=== PATIENT | female | born 1985 | race Caucasian/White ===

== ENCOUNTER → 2016-10-04 | Outpatient (CLI) | payer BC ==
[~2016-10-04] MED LIST: ALBU1AER9 INH; AZEL15GE TOP; BUPRTAB PO; BUSP30TA2 PO; CHOL100010 PO; DPPI150 INJ; EFF75 PO; INSPMPHMLG; LEVO125T4 PO; [UNRECOGNIZED DRUG - CODE] PO
== END | disposition home or self-care (01) ==
LOC: C.LAB1850 09:48
PROVIDERS: ATTEND Podiatrist Foot & Ankle Surgery
DX: Z79.899 Other long term (current) drug therapy (principal)

== ENCOUNTER → 2016-10-04 | Outpatient (CLI) | payer BC | END | disposition home or self-care (01) | LOC: C.LABSPEC 16:52 | PROVIDERS: ATTEND Podiatrist Foot & Ankle Surgery | DX: B35.1 Tinea unguium (principal) ==

== ENCOUNTER → 2016-11-01 | Outpatient (CLI) | payer BC ==
[~2016-11-01] MED LIST changes: -DPPI150 INJ
== END | disposition home or self-care (01) ==
LOC: C.LABSPEC 17:09
PROVIDERS: ATTEND Obstetrics & Gynecology
DX: N76.0 Acute vaginitis (principal)

== ENCOUNTER → 2016-11-05 | Day surgery (SDC) | payer BC ==
[2016-10-18 12:47] VITALS: Ht 170.2 cm; Wt 91.8 kg
[~2016-11-05] VITALS: Ht 170.2 cm; Wt 91.8 kg
[~2016-11-05] MED LIST changes: +ATROPINE SULFATE 0.1 MG/ML 5ML SYR IV PRN; +BUPIVACAINE 0.5 % 5 MG/1 ML MPF 30ML VIAL ONE; +CEFAZOLIN 2000 MG/60 ML D5W IV SCH; +EpHEDrine SULFATE INJ 50 MG/ML AMP IV PRN; +FENTANYL CITRATE INJ 50 MCG/1 ML 2 ML VIAL ONE; +LACTATED RINGER'S 1000ML 1,000 ML IV SCH; +LIDOCAINE HCL 2% LOCAL 20 ML VIAL ONE; +MIDAZOLAM HCL 1 MG/ML 2ML VIAL ONE; +ONDANSETRON INJ 2 MG/ML 2 ML VIAL IV PRN; +SODIUM CHLORIDE 0.9% 1000ML 1,000 ML IV SCH
--- NOTE | 2016-11-05 06:44 | History & Physical Bridge Note ---
H&P Re-Evaluation Bridge Note: I have examined the patient, reviewed the History & Physical and in the interval since the performance of the History & Physical I have noted the following changes of clinical significance: No changes noted
--- NOTE | 2016-11-05 06:46 | Discharge Instructions ---
Discharge Instructions Date of Service Nov 05, 2016. Visit Reason for Visit: Left Dana's Tenosynovitis Discharge Discharge Diagnosis / Problem: same Discharge Goals Goal(s): Decrease discomfort, Improve function Medications Stopped Medications Name(s): na Restart Stopped Medication(s): resume all meds Activity Recommendations Activity Limitations: as noted below Lifting Limitations: none Exercise/Sports Limitations: until after follow-up appointment May Resume Sexual Activity: when tolerated Shower/Bathe: keep incision dry Driving or Machine Use: no limitations Anesthesia . Post Anesthesia Instructions: If you have had General Anesthesia or IV Sedation: * Do not drive today. * Resume driving when surgeon permits. * Do not make important decisions or sign legal documents today. * Call surgeon for: 1. Temperature elevations greater than 101 degrees F. 2. Uncontrollable pain. 3. Excessive bleeding. 4. Persistent nausea and vomiting. 5. Medication intolerance (nausea, vomiting or rash). * For nausea and vomiting use only clear liquids such as: tea, soda, bouillon until nausea subsides, then gradually increase diet as tolerated. * If you have any concerns or questions, call your surgeon's office. If physician is unavailable and it is an emergency, call 911 or go to the nearest emergency room. . Instructions / Follow-Up Instructions / Follow-Up The following are instructions to follow after minor hand surgery. ACTIVITY RECOMMENDATIONS: * Minimize activity until your first visit after surgery. * No excessive walking, jogging, sports or laboring. * Return to activity is individualized. Most patients are able to return to everyday activities within 2 weeks. * Return to sports or intensive labor usually occurs at 1-2 months. * DRIVING: Driving may be resumed when you feel you have adequate pain control and use of the hand. * BATHING: You may shower or sponge-bathe immediately after surgery. The dressing will need to be covered with a plastic bag or plastic wrap until the dressing is changed on the fourth or fifth day after surgery. Once the dressing has been changed on the fourth or fifth day after surgery, you may shower and get the incision wet. * Wash with regular soap and water. * Do not bathe (submerge the incision), soak, swim or use a hot tub until the incision is completely healed over with normal skin and the doctor has given the OK to proceed. * There is no need to apply any ointments, powders or salves to your incision. * Do not apply alcohol or hydrogen peroxide directly to the incision. Diluted peroxide (50:50 mixture with sterile saline) may be used to clean dried blood from around the incision area. WORK/SCHOOL: * You may return to sedentary work or school when you are feeling comfortable. This is usually 3-7 days after surgery. * Expect increased discomfort with increased activity. Continue to elevate and ice the hand as much as possible. DIET: * Resume previous diet. MEDICATIONS: * You will have a prescription for pain medication and an anti-inflammatory medication after surgery. Use the pain pills for severe pain and the anti-inflammatory for less severe pain. * Once the pain pills have run out, try to use the anti-inflammatory. If this is not effective then contact the office for assistance. * The pain medication may cause nausea, constipation and sleepiness. You should see how they affect you before driving or similar activity. * The anti-inflammatory may cause stomach upset and bleeding. If this occurs, let your doctor know immediately . * Some patients may need blood clot prevention. This can be done with either a pill or a simple shot. Your doctor will advise you on when to begin these medications and how to take them. * Do not take aspirin or other anti-inflammatory products (i.e. Advil or Aleve ) if taking blood thinner medication. * Take a stool softener like Colace or a stimulant like Senokot to prevent constipation. SPECIAL CARE INSTRUCTIONS: ICE: * Do not apply ice directly to the skin. * Use a thin dressing or stockinet between the skin and ice bag. The dressing in place after surgery will suffice. * Apply ice for 20-30 minutes and repeat every 2-4 hours. This is especially important for the first 3-7 days after surgery. * Once the pain improves, use ice as needed. ELEVATION: * Keep your hand elevated at or above the level of your heart as much as possible. * Expect some increased discomfort and swelling if you allow your hand to hang down for any length of time. DRESSING: * Your dressing will be changed 4-5 days after surgery by the physical therapist or physician's temporary office assistant. Leave your dressing intact until this time. * You may then change your dressing daily with clean dry gauze or Band-aids and a soft wrap or stockinet. * Always wash your hands prior to touching the incision area. * Once the stitches are removed, you may leave the wound open to air or cover with a thin bandage. * There is no need to apply any ointments, powders or salves to your incision. * Expect some bloody drainage for the first few days after surgery. * Leave the tape strips in place (if present) for 5-7 days. * The initial dressing after surgery may become soaked with blood or fluid which is normal. You may reinforce your dressing with clean, dry gauze as needed. BRACE: * Bracing is generally not needed after routine hand surgery. THERAPY: * Physical therapy may be prescribed after your surgery. * For carpal tunnel and trigger digit surgery you may begin moving your fingers and wrist immediately after surgery as tolerated. * Be careful to not overuse. * Once the sutures are removed, further range of motion exercises can be performed. * Hand incisions may be very sensitive for a few months after surgery so avoid excessive pressure on the incision. If necessary, use a padded weightlifters' glove. * You may massage the incision with skin cream to make it less sensitive and reduce scarring. * Hand strength usually returns with normal use. * If needed, squeezing a soft sponge or Play-dough may help. * Your doctor will recommend physical therapy if necessary. PROBLEMS/QUESTIONS: * If you have any problems such as severe pain, numbness, tingling or high fevers or if you have any questions, please contact the office at [phone]. * It is not uncommon to have some numbness and tingling after the surgery especially if you have had a nerve block done. This should gradually improve over the first 1- 2 days. If this persists longer or worsens then contact the office. FOLLOW UP VISIT: * If not already scheduled, please call the office at to schedule follow-up appointments for approximately 10 days, 6 weeks and 3 months after surgery. Diet Recommendations Recommended Home Diet: resume previous diet Procedures Procedures Performed: 1st dorsal compartmrnt release Pending Studies Studies pending at discharge: no Medical Emergencies . Who to Call and When: Medical Emergencies: If at any time you feel your situation is an emergency, please call 911 immediately. . Non-Emergent Contact Non-Emergency issues call your: Specialist Call Non-Emergent contact if: temperature is above 101.5 . . "Provider Documentation" section prepared by Han Overton.
--- NOTE | 2016-11-05 07:29 | [facility] Post Operative Brief Note ---
Immediate Operative Summary Operative Date Nov 05, 2016. Pre-Operative Diagnosis Left Wrist Dequervain's Tenosynovitis Post-Operative Diagnosis Same Procedure(s) Performed Left Wrist Open First Dorsal Compartment Release Surgeon Dr. Overton Wallpaper Scraper Surgeon(s) Concetta Lewis PA-C Estimated Blood Loss Trace Findings severe constriction/fraying Fluids (cc crystalloids) see anesthesia report Specimens None Drains none Anesthesia local/sedation Complication(s) None Disposition Recovery Room / PACU
[2016-11-05 07:51] VITALS: TEMP 36.8
--- NOTE | 2016-11-05 08:04 | Anesthesia Progress Nt - [facility] ---
Anesthesia Post Op Note Date & Time Nov 05, 2016 at 08:04 Vital Signs Pain Intensity: 0 Vital Signs Past 12 Hours Date Time Temp Pulse Resp B/P Pulse Ox O2 Delivery O2 Flow Rate FiO2 11/05/16 07:51 36.8 82 16 122/77 97 Room Air 11/05/16 06:25 37.4 95 16 140/91 99 Room Air Notes Mental Status: alert / awake / arousable, participated in evaluation Pt Amnestic to Procedure: Yes Nausea / Vomiting: adequately controlled Pain: adequately controlled Airway Patency, RR, SpO2: stable & adequate BP & HR: stable & adequate Hydration State: stable & adequate Anesthetic Complications: no major complications apparent
[2016-11-05 08:05] VITALS: BP 125/78; PULSE 77; O2SAT 98
--- NOTE | 2016-11-05 08:07 | OPERATIVE REPORT ---
DATE OF OPERATION: 11/05/2016 SURGEON: Han Overton MD INSTRUMENT REPAIR SPECIALIST: Manav Lewis PA-C. No resident or fellow available. PREOPERATIVE DIAGNOSIS: Left de Quervain's syndrome/first dorsal compartment entrapment. POSTOPERATIVE DIAGNOSIS: Same. OPERATION PERFORMED: De Quervain's first dorsal compartment release, left wrist. PERIOPERATIVE SITUATION: Medically cleared female, with intractable de Quervain's syndrome. Physical exam x-ray consistent with this. She wants to proceed with surgical treatment. She is a diabetic. OPERATION: The patient was appropriately identified, site verified, consent verified, 2 grams of Ancef confirmed as being given. The left upper extremity was examined revealing the area of tenderness. It was then marked and incision area then infiltrated with 4 mL of 0.5% plain Marcaine and 4 mL of 2% plain lidocaine. The arm was then prepped and draped in usual routine fashion. Tourniquet was applied. The arm was then exsanguinated. Tourniquet was inflated to 250 mmHg after exsanguination of limb with a rubber Esmarch bandage for a total of about 15 minutes. A linear incision vertically was then made over the area. Full thickness flaps raised and care taken to protect the sensory branches of the nerve, the radial nerve. The area was then identified. There was significant bulging visible. The tendon sheath was then incised on the dorsal third of the sheet.There was an open up of immediate fluid release from the tendon sheath. There was a lot of tenosynovitis, this was all debrided. There was some fraying to the abductor pollicis longus. There were multiple heads to the extensor pollicis brevis. These were all released. The wound was then copiously irrigated and then closed using 3-0 Vicryl subcutaneous stitch and a running subcuticular 3-0 nylon stitch. Appropriate dressing was applied and a 3-inch fiberglass thumb spica splint. The patient was then transferred to the holding area in satisfactory condition having tolerated the procedure well. Estimated blood loss was trace. Crystalloid per anesthesia report. No DVT prophylaxis required. Follow up in two weeks for suture removal. I attest to the content of the Intraoperative Record and any orders documented therein. Any exceptions are noted below. CHRISTID
--- NOTE | 2016-11-05 09:11 | OPERATIVE REPORT ---
DATE OF OPERATION: 11/05/2016 PREOPERATIVE DIAGNOSIS: Left wrist de Quervain's syndrome/first dorsal compartment entrapment. POSTOPERATIVE DIAGNOSIS: Left wrist same. PROCEDURE: Left wrist de Quervain's first dorsal compartment release. SURGEON: Dr. Overton. CAR KNOCKER: Manav Lewis PA-C. HISTORY OF PRESENT ILLNESS: This 31-year-old white female presented to the office with complaints of intractable wrist pain at the first dorsal compartment. She had tried conservative care measures without success. She has symptoms in both wrists but the left is worse. She elected to proceed with surgical intervention after being educated about potential risks and outcomes. OPERATION: The patient was taken to the operating room where she was given local anesthetic and sedation. She was prepped and draped in the usual sterile fashion. Please see Dr. Overton's operative report for specifics of the procedure. I was present for the entire case from initial patient positioning through final wound closure. Assistance was provided in tissue retraction, hemostasis, and final wound closure. The patient was taken to phase 2 recovery in satisfactory condition. I attest to the content of the Intraoperative Record and any orders documented therein. Any exceptions are noted below. MTDD
== END | disposition home or self-care (01) ==
LOC: X.SURG 06:14
PROVIDERS: ATTEND Physical Medicine & Rehabilitation Sports Medicine
DX: M65.4 Radial styloid tenosynovitis [de Quervain] (principal); I10 Essential (primary) hypertension; E11.9 Type 2 diabetes mellitus without complications; F41.9 Anxiety disorder, unspecified; E66.9 Obesity, unspecified; Z98.51 Tubal ligation status; Z98.890 Other specified postprocedural states; J45.909 Unspecified asthma, uncomplicated; Z68.31 Body mass index [BMI] 31.0-31.9, adult; Z79.4 Long term (current) use of insulin

== ENCOUNTER → 2017-04-30 | Outpatient (CLI) | payer BC ==
[~2017-04-30] MED LIST changes: -ATROPINE SULFATE 0.1 MG/ML 5ML SYR IV PRN; -BUPIVACAINE 0.5 % 5 MG/1 ML MPF 30ML VIAL ONE; -CEFAZOLIN 2000 MG/60 ML D5W IV SCH; -EpHEDrine SULFATE INJ 50 MG/ML AMP IV PRN; -FENTANYL CITRATE INJ 50 MCG/1 ML 2 ML VIAL ONE; -LACTATED RINGER'S 1000ML 1,000 ML IV SCH; -LIDOCAINE HCL 2% LOCAL 20 ML VIAL ONE; -MIDAZOLAM HCL 1 MG/ML 2ML VIAL ONE; -ONDANSETRON INJ 2 MG/ML 2 ML VIAL IV PRN; -SODIUM CHLORIDE 0.9% 1000ML 1,000 ML IV SCH
== END | disposition home or self-care (01) ==
LOC: C.PAPS 10:01
PROVIDERS: ATTEND Obstetrics & Gynecology
DX: Z01.419 Encounter for gynecological examination (general) (routine) without abnormal findings (principal)

== ENCOUNTER → 2017-08-06 | Outpatient (CLI) | payer BC ==
[~2017-08-06] MED LIST changes: -LEVO125T4 PO; +LEVO125T5 PO
== END | disposition home or self-care (01) ==
LOC: C.LABSPEC 17:11
PROVIDERS: ATTEND Dermatology
DX: B35.1 Tinea unguium (principal)

== ENCOUNTER → 2017-12-12 | Outpatient (CLI) | payer OTHER ==
[~2017-12-12] MED LIST changes: +OPTIRAY 320 IV PRN
--- NOTE | 2017-12-12 15:24 | DIAGNOSTIC IMAGING REPORT ---
ABD/PELVIS IV AND ORAL CONT CT DOSE: 655.64 mGycm HISTORY: Pain R10.32 LLQ painR19.8 [id number] TECHNIQUE: Multiaxial CT images of the abdomen and pelvis were performed following the use of intravenous and oral contrast. A dose lowering technique was utilized adhering to the principles of ALARA. COMPARISON STUDY: None. FINDINGS: Lung bases are clear. Liver is uniform throughout. No significant gallbladder distention. The kidneys enhance uniformly. Moderate thickening of the gastric fundus felt to be technical. No significant adenopathy of the abdomen or pelvis. Nonobstructive bowel pattern. Uterus is anteflexed. Bladder is midline. No free fluid within the pelvic cul-de-sac. IMPRESSION: No acute process of the abdomen or pelvis. The above report was generated using voice recognition software. It may contain grammatical, syntax or spelling errors. Electronically signed by: Gunner Tomas M.D. 12/12/2017 3:22 PM Dictated Date/Time: 12/12/2017 3:19 PM
== END | disposition home or self-care (01) ==
LOC: C.CTS 12:58
PROVIDERS: ATTEND Internal Medicine
DX: R19.8 Other specified symptoms and signs involving the digestive system and abdomen (principal); R10.32 Left lower quadrant pain

== ENCOUNTER → 2017-12-24 | Outpatient (CLI) | payer OTHER ==
[~2017-12-24] MED LIST changes: -OPTIRAY 320 IV PRN
--- NOTE | 2017-12-24 13:02 | DIAGNOSTIC IMAGING REPORT ---
NUCLEAR GASTRIC EMPTYING STUDY HISTORY: Left lower quadrant abdominal pain. borborygmi COMPARISON: Abdomen and pelvis CT 12/12/2017. TECHNIQUE: Following the oral administration of 1.0 mCi of technetium 99m sulfur colloid in egg sandwich and 8 ounces of water, static abdominal images are obtained anteriorly and posteriorly at 0 minutes, 1 hour, 2 hour, and 4 hour time intervals. Gastric emptying was calculated utilizing the geometric mean method. FINDINGS: There is approximately 65% activity remaining at the 1 hour time interval (normal is less than 90%), 38% remaining at the 2 hour time interval (normal is less than 60%), and 5% activity remaining at the 4 hour time interval (normal is less than 10%). IMPRESSION: No evidence for delayed gastric emptying. Electronically signed by: Oc Stafford M.D. 12/24/2017 1:01 PM Dictated Date/Time: 12/24/2017 12:59 PM
== END | disposition home or self-care (01) ==
LOC: C.NUCL 08:18
PROVIDERS: ATTEND Physician Assistant
DX: R19.8 Other specified symptoms and signs involving the digestive system and abdomen (principal); R10.32 Left lower quadrant pain

== ENCOUNTER 2018-04-09 13:49 | Inpatient (IN) | payer OTHER ==
[~2018-04-09] VITALS: Ht 172.7 cm; Wt 87.7 kg
[2018-04-09] MEDS ORDERED: SODIUM CHLORIDE 0.9% 1000ML 1,000 ML IV STA (15:08)
[2018-04-09] MEDS ORDERED: ONDANSETRON INJ 2 MG/ML 2 ML VIAL IV STA (15:08)
--- NOTE | 2018-04-09 15:41 | DIAGNOSTIC IMAGING REPORT ---
CHEST ONE VIEW PORTABLE CLINICAL HISTORY: 33 years-old Female presenting with vomiting, dka. TECHNIQUE: Portable upright AP view of the chest was obtained. COMPARISON: 09/19/2011. FINDINGS: Cardiomediastinal silhouette normal. No focal opacity. No large effusion or pneumothorax. Osseous structures normal. Upper abdomen normal. IMPRESSION: 1. No acute cardiopulmonary disease. Electronically signed by: Aubrey Bedoya M.D. 04/09/2018 3:40 PM Dictated Date/Time: 04/09/2018 3:38 PM
[2018-04-09] MEDS ORDERED: VNTHFA/IN INH (15:43)
[2018-04-09] MEDS ORDERED: CHOL1000 PO (15:43)
--- NOTE | 2018-04-09 15:43 | EMERGENCY ROOM VISIT NOTE ---
History First contact with patient: 15:00 Chief Complaint: VOMITING Stated Complaint: THROWING UP, DIABETIC Nursing Triage Summary: Vomiting since 299. History of Present Illness The patient is a 33 year old female who presents to the Emergency Room with complaints of vomiting which began approximately 12 hours ago. The patient reports that she woke up this morning vomiting. She has been unable to keep anything down since then. She is a type I diabetic and reports that her sugar has been high, with her most recent blood sugar being 466. She was seen at acute care and given 2 Zofran which she immediately vomited. She states that she has not been ill recently. Her mother is also ill with vomiting. She reports a history of DKA over 10 years ago, but nothing recently. She has an insulin pump and did bolus recently. She states that her blood sugars are typically moderately controlled. She denies any abdominal pain, fevers or diarrhea. Review of Systems A complete 10 point review of systems was reviewed with the patient with pertinent positives and negatives as per history of present illness. All else were negative. Past Medical/Surgical History Medical Problems: (1) DKA (diabetic ketoacidoses) (2) Hypertension (3) Type 1 diabetes mellitus Social History Smoking Status: Never Smoker Marital Status: Housing Status: lives with significant other Current/Historical Medications Scheduled Albuterol Hfa (Ventolin Hfa), 2 PUFFS INH Q4H Bupropion Hcl (Wellbutrin Xl), 1 TAB PO QAM Buspirone Hcl (Buspirone Hcl), 1 TAB PO BID Cholecalciferol (Vitamin D3), 1 TAB PO DAILY Insulin Human Lispro (Insulin Humalog Pump ), 1 EA N/A UD Irbesartan (Avapro), 75 MG PO QAM Levothyroxine Sodium (Levothyroxine Sodium), 125 MCG PO QAM Venlafaxine Hcl (Effexor), 225 MG PO HS Physical Exam Vital Signs Date Time Temp Pulse Resp B/P (MAP) Pulse Ox O2 Delivery O2 Flow Rate FiO2 04/09/18 21:25 106 18 134/55 100 Room Air 04/09/18 19:05 104 147/63 99 Room Air 04/09/18 17:25 100 130/94 100 Room Air 04/09/18 15:50 101 143/67 100 Room Air 04/09/18 13:55 36.4 102 20 128/72 100 Room Air Physical Exam VITALS: Vitals are noted on the nurse's note and reviewed by myself. Vital signs stable. GENERAL: This is a 33-year-old female, in no acute distress, well-developed well -nourished. SKIN: The skin was without rashes. EARS: External auditory canals clear, tympanic membranes pearly landeros without erythema or effusion bilaterally. EYES: Pupils equal round and reactive to light and accommodation. MOUTH: Mucous membranes moist. HEART: Regular rate and rhythm without murmurs gallops or rubs. LUNGS: Clear to auscultation bilaterally without wheezes, rales or rhonchi. ABDOMEN: Positive bowel sounds x 4. Soft, nontender to palpation. NEURO: Patient was alert and oriented to person place and time. Medical Decision & Procedures ER Provider Diagnostic Interpretation: CHEST ONE VIEW PORTABLE CLINICAL HISTORY: 33 years-old Female presenting with vomiting, dka. TECHNIQUE: Portable upright AP view of the chest was obtained. COMPARISON: 09/19/2011. FINDINGS: Cardiomediastinal silhouette normal. No focal opacity. No large effusion or pneumothorax. Osseous structures normal. Upper abdomen normal. IMPRESSION: 1. No acute cardiopulmonary disease. Laboratory Results 04/09/18 16:01 Red Blood Count 4.95, Mean Corpuscular Volume 85.9, Mean Corpuscular Hemoglobin 29.5, Mean Corpuscular Hemoglobin Concent 34.4, Mean Platelet Volume 10.9, Neutrophils (%) (Auto) 92.1, Lymphocytes (%) (Auto) 4.2, Monocytes (%) (Auto) 3.4, Eosinophils (%) (Auto) 0.0, Basophils (%) (Auto) 0.0, Neutrophils # (Auto) 21.65, Lymphocytes # (Auto) 0.99, Monocytes # (Auto) 0.80, Eosinophils # (Auto) 0.01, Basophils # (Auto) 0.01 04/09/18 20:59 Test 04/09/18 15:35 04/09/18 16:01 04/09/18 20:11 04/09/18 20:59 Urine Color YELLOW Urine Appearance CLEAR (CLEAR) Urine pH 5.0 (4.5-7.5) Urine Specific [place] 1.025 (1.000-1.030) Urine Protein NEG (NEG) Urine Glucose (UA) 3+ (NEG) Urine Ketones 4+ (NEG) Urine Occult Blood NEG (NEG) Urine Nitrite NEG (NEG) Urine Bilirubin NEG (NEG) Urine Urobilinogen NEG (NEG) Urine Leukocyte Esterase NEG (NEG) Urine Test NEG (NEG) White Blood Count 23.52 K/uL (4.8-10.8) Red Blood Count 4.95 M/uL (4.2-5.4) Hemoglobin 14.6 g/dL (12.0-16.0) Hematocrit 42.5 % (37-47) Mean Corpuscular Volume 85.9 fL (80-100) Mean Corpuscular Hemoglobin 29.5 pg (25-34) Mean Corpuscular Hemoglobin Concent 34.4 g/dl (32-36) Platelet Count 344 K/uL (130-400) Mean Platelet Volume 10.9 fL (7.4-10.4) Neutrophils (%) (Auto) 92.1 % Lymphocytes (%) (Auto) 4.2 % Monocytes (%) (Auto) 3.4 % Eosinophils (%) (Auto) 0.0 % Basophils (%) (Auto) 0.0 % Neutrophils # (Auto) 21.65 K/uL (1.4-6.5) Lymphocytes # (Auto) 0.99 K/uL (1.2-3.4) Monocytes # (Auto) 0.80 K/uL (0.11-0.59) Eosinophils # (Auto) 0.01 K/uL (0-0.5) Basophils # (Auto) 0.01 K/uL (0-0.2) RDW Standard Deviation 42.4 fL (36.4-46.3) RDW Coefficient of Variation 13.6 % (11.5-14.5) Immature Granulocyte % (Auto) 0.3 % Immature Granulocyte # (Auto) 0.06 K/uL (0.00-0.02) Venous Blood pH 7.25 (7.36-7.41) Venous Blood Partial Pressure CO2 35 mmHg (38.0-50.0) Venous Blood Partial Pressure O2 37 mmHg Venous Blood HCO3 15 mmol/L Venous Blood Oxygen Saturation 62.3 % Venous Blood Base Excess -11.0 mEq/L Total Bilirubin 1.1 mg/dl (0.2-1) Direct Bilirubin mg/dl (0-0.2) Aspartate Amino Transf (AST/SGOT) 24 U/L (15-37) Alanine Aminotransferase (ALT/SGPT) 21 U/L (12-78) Alkaline Phosphatase 102 U/L (45-117) Total Protein 8.4 gm/dl (6.4-8.2) Albumin 4.6 gm/dl (3.4-5.0) Bedside Hemoglobin 13.3 g/dl (12.0-16.0) Bedside Hematocrit 39 % (37-47) Bedside Blood Gas pH (LAB) 7.32 (7.35-7.45) Bedside Blood Gas pCO2 (LAB) 25 mmHg (35-46) Bedside Blood Gas pO2 (LAB) 96 mmHg (80-95) Bedside Blood Gas HCO3 (LAB) 13 meq/L (19-24) Bedside Blood Gas Total CO2 14 mEq/l (24-31) Bedside Blood Gas Base Excess (LAB) -13.0 meq/L (-9-1.8) Bedside Blood Gas O2 Saturation 97.0 % (90-95) Bedside Sodium 138 mEq/L (135-144) Bedside Potassium 4.2 mEq/L (3.3-5.0) Anion Gap 16.0 mmol/L (3-11) Est Creatinine Clear Calc Drug Dose 86.7 ml/min Estimated GFR () 79.0 Estimated GFR (Non- 68.2 BUN/Creatinine Ratio 22.4 (10-20) Calcium Level 9.0 mg/dl (8.5-10.1) Phosphorus Level 3.5 mg/dl (2.5-4.9) Magnesium Level 2.1 mg/dl (1.8-2.4) Beta-Hydroxybutyric Acid 43.41 mg/dL (0.2-2.81) Medications Administered Medications (Trade) Dose Ordered Sig/Fermin Route Start Time Stop Time Status Last Admin Dose Admin Sodium Chloride 1,000 ml @ 999 mls/hr Q1H1M STAT IV 04/09/18 15:08 04/09/18 16:08 DC 04/09/18 16:16 999 MLS/HR Ondansetron HCl (Zofran Inj) 4 mg NOW STAT IV 04/09/18 15:08 04/09/18 15:10 DC 04/09/18 16:15 4 MG Promethazine HCl 12.5 mg/Sodium Chloride 50.5 ml @ 204 mls/hr NOW STAT IV 04/09/18 16:51 04/09/18 17:05 DC 04/09/18 17:04 204 MLS/HR Potassium Chloride/Sodium Chloride 1,000 ml @ 500 mls/hr Q2H STAT IV 04/09/18 17:13 04/09/18 19:12 DC 04/09/18 17:13 500 MLS/HR Insulin Human Regular (NovoLIN R BOLUS FROM BAG) 2 unit ONE ONCE IV 04/09/18 17:45 04/09/18 17:46 DC 04/09/18 18:12 2 UNIT Insulin Human Regular 250 units/ Sodium Chloride 252.5 ml @ 0 mls/hr Q24H IV 04/09/18 17:45 04/10/18 17:44 04/09/18 18:12 2.2 MLS/HR Sodium Chloride 1,000 ml @ 150 mls/hr Q6H40M IV 04/09/18 21:20 05/09/18 21:19 04/09/18 23:36 150 MLS/HR Medical Decision Differential diagnosis includes DKA, gastroenteritis, cholecystitis, appendicitis, gastritis, electrolyte imbalance, infection, among others. The patient is a 33-year-old female with past medical history type 1 diabetes who presents today complaining of persistent vomiting. Labs revealed significant leukocytosis of 23.52. VBG and can panel suggestive of diabetic ketoacidosis. Patient has an anion gap 19, carbon dioxide 16. Potassium is 4.7. Patient has a mild elevation of creatinine at 1.22. Initial glucose was elevated at 512. Urinalysis showed 4+ ketones, consistent with significant dehydration. It is unclear what the source of the DKA is. Patient has had no recent infectious symptoms. She may have had a malfunction of her pump. The patient was given IV hydration. An insulin drip was started. Patient was closely monitored while in the emergency department. She was admitted to the [facility] service for further evaluation and care of DKA. Medication Reconcilliation Current Medication List: was personally reviewed by me Blood Pressure Screening Patient's blood pressure: Normal blood pressure Impression Primary Impression: DKA (diabetic ketoacidoses) Critical Care I have personally spent greater than 30 minutes of critical care time in the direct management of this patient. This includes bedside care, interpretation of diagnostic studies, and testing, discussion with consultants, patient, and family members, and other required patient management activities. This 30 minutes is in excess of all separately billable procedures. Departure Information Referrals Wilber Hinds M.D. (PCP) Patient Instructions My [facility] Problem Qualifiers Primary Impression: DKA (diabetic ketoacidoses) Diabetes mellitus type: type 1 Diabetes mellitus complication detail: without coma Qualified Codes: E10.10 - Type 1 diabetes mellitus with ketoacidosis without coma
[2018-04-09 16:18] LABS: HEMATOCRIT 42.5 % (37-47); HEMOGLOBIN 14.6 g/dL (12.0-16.0); MEAN CELL VOLUME 85.9 fL (80-100); MEAN CORPUSCULAR HEMOGLOBIN 29.5 pg (25-34); MEAN CORPUSCULAR HGB CONC 34.4 g/dl (32-36); MEAN PLATELET VOLUME 10.9 fL (7.4-10.4); PLATELET COUNT 344 K/uL (130-400); RED CELL DISTRIBUTION WIDTH CV 13.6 % (11.5-14.5); RED CELL DISTRIBUTION WIDTH SD 42.4 fL (36.4-46.3); WHITE BLOOD COUNT 23.52 K/uL (4.8-10.8)
[2018-04-09 16:50] LABS: BASO ABS # 0.01 K/uL (0-0.2); EOS ABS # 0.01 K/uL (0-0.5); IG# 0.06 K/uL (0.00-0.02); LYMPH % 4.2 %; LYMPH ABS # 0.99 K/uL (1.2-3.4); MONO % 3.4 %; NEUT % 92.1 %; NEUT ABS # 21.65 K/uL (1.4-6.5)
[2018-04-09] MEDS ORDERED: PROMETHAZINE HCL INJ 12.5 MG in SODIUM CHLORIDE 0.9% 50ML 50 ML IV STA (16:51)
[2018-04-09 16:53] LABS: ALBUMIN 4.6 gm/dl (3.4-5.0); CREATININE 1.22 mg/dl (0.60-1.20); POTASSIUM 4.7 mmol/L (3.5-5.1); TOTAL PROTEIN 8.4 gm/dl (6.4-8.2)
[2018-04-09] MEDS ORDERED: NSS + 20MEQ KCL 1000ML 1,000 ML IV STA (17:13)
[2018-04-09] MEDS ORDERED: INSULIN IV INFUSION PROTOCOL STA ×2 (17:13→21:20)
[2018-04-09] MEDS ORDERED: DKA GOAL RANGE 150-250 mg/dl 1 EA ONE ×2 (17:15→21:30)
[2018-04-09] MEDS ORDERED: MODERATE STRESS LEVEL ONE ×2 (17:15→21:30)
[2018-04-09] MEDS ORDERED: GLUCOSE 40% GEL 15 GM TUBE PO PRN ×2 (17:45→23:45)
[2018-04-09] MEDS ORDERED: GLUCOSE 10 TABS/TUBE PO PRN ×2 (17:45→23:45)
[2018-04-09] MEDS ORDERED: NovoLIN R BOLUS FROM BAG IV ONE (17:45)
[2018-04-09] MEDS ORDERED: CARBOHYDRATES FOR HYPOGLYCEMIA PO PRN ×2 (17:45→23:45)
[2018-04-09] MEDS ORDERED: DEXTROSE 50% 50 ML SYR IV PRN ×2 (17:45→23:45)
[2018-04-09] MEDS ORDERED: GLUCAGON FOR INJ 1 MG VIAL IM PRN ×2 (17:45→23:45)
[2018-04-09] MEDS: INSULIN REGULAR 250 UNITS in SODIUM CHLORIDE 0.9% 250ML 250 ML IV SCH (18:12)
[2018-04-09 20:26] LABS: ISTAT POTASSIUM 4.2 mEq/L (3.3-5.0); ISTAT SODIUM 138 mEq/L (135-144)
[2018-04-09] MEDS ORDERED: ONDANSETRON INJ 2 MG/ML 2 ML VIAL IV PRN (21:30)
[2018-04-09 21:39] LABS: CREATININE 1.07 mg/dl (0.60-1.20); POTASSIUM 4.9 mmol/L (3.5-5.1)
[2018-04-09 21:47] LABS: PHOSPHORUS 3.5 mg/dl (2.5-4.9)
--- NOTE | 2018-04-09 21:59 | History and Physical ---
History & Physical Date & Time of Service: Apr 09, 2018 at 21:34 Chief Complaint: Throwing Up, Diabetic Primary Care Physician: Wilber Hinds M.D. History of Present Illness Source: patient, hospital records The patient is a 33 year old female with a past medical history of Hypertension and Type 1 Diabetes on an insulin pump that woke up at 4am this morning with nausea and vomiting. The patient states that last night she had no acute complaints and woke up immediately this morning feeling unwell. She states that her insulin pump was functioning properly as of last night. She has has a previous episode of DKA 10 years ago but has had no issues since starting her insulin pump. She follows with Dr. [facility]es [facility]. She denies any fevers, chills, sweats, shortness of breath, chest pain, urinary symptoms, or any other acute complaints. Past Medical/Surgical History Medical Problems: (1) DKA (diabetic ketoacidoses) (2) Hypertension (3) Type 1 diabetes mellitus Family History Noncontributory Social History Smoking Status: Never Smoker Smokeless Tobacco Use: No Alcohol Use: none Drug Use: none Marital Status: Housing status: lives with significant other Occupational Status: employed Immunizations History of Influenza Vaccine: No History of Tetanus Vaccine?: No History of Pneumococcal: No History of Hepatitis B Vaccine: No Allergies Coded Allergies: Gabapentin (Unverified Adverse Reaction, Unknown, GI SYMPTOMS, 04/09/18) Home Medications Scheduled Albuterol Hfa (Ventolin Hfa), 2 PUFFS INH Q4H Bupropion Hcl (Wellbutrin Xl), 1 TAB PO QAM Buspirone Hcl (Buspirone Hcl), 1 TAB PO BID Cholecalciferol (Vitamin D3), 1 TAB PO DAILY Insulin Human Lispro (Insulin Humalog Pump ), 1 EA N/A UD Irbesartan (Avapro), 75 MG PO QAM Levothyroxine Sodium (Levothyroxine Sodium), 125 MCG PO QAM Venlafaxine Hcl (Effexor), 225 MG PO HS Review of Systems Constitutional: + weakness, + fatigue, No fever, No chills, No sweats Respiratory: No cough, No sputum, No wheezing, No shortness of breath, No dyspnea on exertion Cardiovascular: No chest pain, No orthopnea, No edema, No palpitations Abdomen: + nausea, + vomiting, No pain, No diarrhea, No constipation Musculoskeletal: No joint pain, No swelling, No calf pain Genitourinary - Female: No dysuria, No urinary frequency, No urinary urgency Endocrine: + fatigue, + excessive thirst Physical Exam Vital Signs Date Time Temp Pulse Resp B/P (MAP) Pulse Ox O2 Delivery O2 Flow Rate FiO2 04/09/18 21:25 106 18 134/55 100 Room Air 04/09/18 19:05 104 147/63 99 Room Air 04/09/18 17:25 100 130/94 100 Room Air 04/09/18 15:50 101 143/67 100 Room Air 04/09/18 13:55 36.4 102 20 128/72 100 Room Air General Appearance: WD/WN, + mild distress Head: normocephalic, atraumatic Eyes: normal inspection, sclerae normal Neck: supple, no carotid bruits Respiratory/Chest: chest non-tender, lungs clear, normal breath sounds Cardiovascular: no edema, no gallop, + tachycardia Abdomen/GI: normal bowel sounds, non tender, soft Extremities/Musculoskelatal: no calf tenderness, no pedal edema Neurologic/Psych: alert, normal mood/affect, normal reflexes, oriented x 3 Diagnostics Laboratory Results Results Past 24 Hours Test 04/09/18 15:04 04/09/18 15:35 04/09/18 16:01 04/09/18 17:24 Range/Units Bedside Glucose 494 483 70-90 mg/dl Urine Color YELLOW Urine Appearance CLEAR CLEAR Urine pH 5.0 4.5-7.5 Urine Specific [place] 1.025 1.000-1.030 Urine Protein NEG NEG Urine Glucose (UA) 3+ NEG Urine Ketones 4+ NEG Urine Occult Blood NEG NEG Urine Nitrite NEG NEG Urine Bilirubin NEG NEG Urine Urobilinogen NEG NEG Urine Leukocyte Esterase NEG NEG Urine Test NEG NEG White Blood Count 23.52 4.8-10.8 K/uL Red Blood Count 4.95 4.2-5.4 M/uL Hemoglobin 14.6 12.0-16.0 g/dL Hematocrit 42.5 37-47 % Mean Corpuscular Volume 85.9 80-100 fL Mean Corpuscular Hemoglobin 29.5 25-34 pg Mean Corpuscular Hemoglobin Concent 34.4 32-36 g/dl Platelet Count 344 130-400 K/uL Mean Platelet Volume 10.9 7.4-10.4 fL Neutrophils (%) (Auto) 92.1 % Lymphocytes (%) (Auto) 4.2 % Monocytes (%) (Auto) 3.4 % Eosinophils (%) (Auto) 0.0 % Basophils (%) (Auto) 0.0 % Neutrophils # (Auto) 21.65 1.4-6.5 K/uL Lymphocytes # (Auto) 0.99 1.2-3.4 K/uL Monocytes # (Auto) 0.80 0.11-0.59 K/uL Eosinophils # (Auto) 0.01 0-0.5 K/uL Basophils # (Auto) 0.01 0-0.2 K/uL RDW Standard Deviation 42.4 36.4-46.3 fL RDW Coefficient of Variation 13.6 11.5-14.5 % Immature Granulocyte % (Auto) 0.3 % Immature Granulocyte # (Auto) 0.06 0.00-0.02 K/uL Venous Blood pH 7.25 7.36-7.41 Venous Blood Partial Pressure CO2 35 38.0-50.0 mmHg Venous Blood Partial Pressure O2 37 mmHg Venous Blood HCO3 15 mmol/L Venous Blood Oxygen Saturation 62.3 % Venous Blood Base Excess -11.0 mEq/L Sodium Level 135 136-145 mmol/L Potassium Level 4.7 3.5-5.1 mmol/L Chloride Level 100 98-107 mmol/L Carbon Dioxide Level 16 21-32 mmol/L Anion Gap 19.0 3-11 mmol/L Blood Urea Nitrogen 21 7-18 mg/dl Creatinine 1.22 0.60-1.20 mg/dl Est Creatinine Clear Calc Drug Dose 76.0 ml/min Estimated GFR () 67.4 Estimated GFR (Non- 58.2 BUN/Creatinine Ratio 17.5 10-20 Random Glucose 512 70-99 mg/dl Calcium Level 10.0 8.5-10.1 mg/dl Total Bilirubin 1.1 0.2-1 mg/dl Direct Bilirubin 0-0.2 mg/dl Aspartate Amino Transf (AST/SGOT) 24 15-37 U/L Alanine Aminotransferase (ALT/SGPT) 21 12-78 U/L Alkaline Phosphatase 102 45-117 U/L Total Protein 8.4 6.4-8.2 gm/dl Albumin 4.6 3.4-5.0 gm/dl Beta-Hydroxybutyric Acid 0.2-2.81 mg/dL Test 04/09/18 18:17 04/09/18 20:11 04/09/18 20:59 04/09/18 21:20 Range/Units Bedside Glucose 523 70-90 mg/dl Bedside Hemoglobin 13.3 12.0-16.0 g/dl Bedside Hematocrit 39 37-47 % Bedside Blood Gas pH (LAB) 7.32 7.35-7.45 Bedside Blood Gas pCO2 (LAB) 25 35-46 mmHg Bedside Blood Gas pO2 (LAB) 96 80-95 mmHg Bedside Blood Gas HCO3 (LAB) 13 19-24 meq/L Bedside Blood Gas Total CO2 14 24-31 mEq/l Bedside Blood Gas Base Excess (LAB) -13.0 -9-1.8 meq/L Bedside Blood Gas O2 Saturation 97.0 90-95 % Bedside Sodium 138 135-144 mEq/L Bedside Potassium 4.2 3.3-5.0 mEq/L Impression Assessment and Plan The patient is a 33 year old female with a past medical history of Hypertension and Type 1 Diabetes on an insulin pump that woke up at 4am this morning with nausea and vomiting DKA - IV NS + 20K @ 150 mls/hr - Repeat Bicarb, if continues to drop can add bicarb drip on - BMP, Mag, Phos q4h - Beta Hydroxybuteric Acid Pending - NPO - As per protocol transition fluids to D5 when glucose in 150-250 goal range - Once pump is ordered pharmacy will come to evaluate, most likely DKA caused by site issue not pump - Admit Telemetry Mental Health - Hold hoe Wellbutrin, Buspirone, and Effexor Hypothyroidism - Give Synthroid 62.5 IV tomorrow morning Hypertension - Hold home Irbesartan DVT - SCDs Code Status - Full Resuscitation Attending addendum: I have physically seen this patient, have supervised the medical residents activities, and agree with the H&P unless as otherwise noted. Assessment and Plan: DKA-- Admit to monitored bed. Unclear whether insulin pump has been functional. IV fluids which changes as noted above. Serial laboratories. NPO for now. Hypertension-- Hold irbesartan. Hypothyroidism-- Give IV tomorrow if unable to take oral medication. Remainder of orders and notations as above. Advanced Directives Existing Advance Directive: No Existing Living Will: No Existing Power of Rn Transition: No Resuscitation Status Full Code VTE Prophylaxis Will order VTE Prophylaxis: Yes Social Service Consult None Apply Resident Tracking Resident Involvement: Resident Care Provided Care Provided: Adult Hospital Medicine
[2018-04-09] MEDS: PENDING NSS+20mEq KCL IVF SCH (22:00)
[2018-04-09] MEDS ORDERED: PENDING D5 1/2NS+20mEq KCL IVF SCH (22:00)
[2018-04-09] MEDS: SODIUM CHLORIDE 0.9% 1000ML 1,000 ML IV SCH (23:36)
[2018-04-10 01:16] VITALS: BP 118/67; PULSE 111; TEMP 37; O2SAT 99; BMI 29.4
[2018-04-10] MEDS: INSULIN REGULAR 250 UNITS in SODIUM CHLORIDE 0.9% 250ML 250 ML IV SCH (03:01)
[2018-04-10] MEDS: SODIUM CHLORIDE 0.9% 1000ML 1,000 ML IV SCH (04:00)
[2018-04-10] MEDS: ALBUTEROL HFA 8 GM INHALER INH SCH ×5 (04:00→16:00)
[2018-04-10 04:03] VITALS: BP 116/64; PULSE 103; TEMP 37.2; O2SAT 100
[2018-04-10 04:54] LABS: CALCIUM 8.4 mg/dl (8.5-10.1); CREATININE 1.03 mg/dl (0.60-1.20); POTASSIUM 4.3 mmol/L (3.5-5.1)
[2018-04-10] MEDS ORDERED: NURSING VERBAL MED ORDER ONE (05:30)
[2018-04-10] MEDS: D5W AND 1/2NSS + 20MEQ KCL 1,000 ML IV SCH ×2 (05:45→11:17)
[2018-04-10 06:56] VITALS: BP 110/69; PULSE 93; TEMP 37.5; O2SAT 100
[2018-04-10] MEDS: PENDING NSS+20mEq KCL IVF SCH ×5 (08:00→14:00)
[2018-04-10] MEDS: INSULIN ASPART 100 UNITS/ML 3 ML PEN SC SCH ×2 (08:00→12:42)
[2018-04-10 08:47] LABS: CALCIUM 8.6 mg/dl (8.5-10.1); CREATININE 0.93 mg/dl (0.60-1.20); POTASSIUM 4.4 mmol/L (3.5-5.1)
[2018-04-10] MEDS ORDERED: LEVOTHYROXINE SODIUM INJ 62.5 MCG in SYRINGE 0 ML IV SCH (09:00)
[2018-04-10] MEDS ORDERED: LEVOTHYROXINE SODIUM 20 MCG/1 ML IM SCH (09:00)
[2018-04-10] MEDS ORDERED: PHARMACY GLYCEMIC MGMT CONSULT PRN (10:08)
--- NOTE | 2018-04-10 11:20 | Discharge Instructions ---
Discharge Instructions Date of Service Apr 10, 2018. Admission Reason for Admission: Dka (Diabeti Ketoacidoses) Discharge Discharge Diagnosis / Problem: Diabetic Ketoacidosis Discharge Goals Goal(s): Improve function, Improve disease control Activity Recommendations Activity Limitations: resume your previous activity . Instructions / Follow-Up Instructions / Follow-Up You were admitted to [facility] due to diabetic ketoacidosis, where your sugar levels were very high (over 500). You were treated with IV fluids as you were very dehydrated, as well as IV insulin. Your sugar levels slowly improved back to normal, and your electrolyte abnormalities corrected. We strongly recommend you use both the basal and bolus functions on your insulin pump to facilitate good sugar control. We have set up follow up for you with your telephone engineer - Teresita Valdezor CARLOS on FridayApril 13 at 6:30PM. If you are unable to keep this appointment please call the office at [phone]. If your sugar levels persistently remain elevated, you have further episodes of nausea, vomiting or diarrhea, please seek medical attention. Current Hospital Diet Patient's current hospital diet: Diabetes Type 2 Diet Discharge Diet Recommended Diet: Diabetes Type 1 Diet Pending Studies Studies pending at discharge: no Medical Emergencies . Who to Call and When: Medical Emergencies: If at any time you feel your situation is an emergency, please call 911 immediately. . Non-Emergent Contact Non-Emergency issues call your: Primary Care Provider . . "Provider Documentation" section prepared by Curtis Abdul. .
[2018-04-10 11:47] VITALS: Ht 172.7 cm; Wt 87.7 kg
[2018-04-10 12:55] VITALS: BP 101/66; PULSE 83; TEMP 37.2; O2SAT 100
[2018-04-10] MEDS: NovoLOG INSULIN PUMP SCH ×2 (13:00→13:18)
[2018-04-10] MEDS ORDERED: INSULIN ASPART 100 UNITS/ML VIAL SC PRN (13:00)
--- NOTE | 2018-04-10 13:16 | Pharmacy Progress Note ---
Glycemic Control Intl Consult Date of Service Apr 10, 2018. Scope Glycemic Pharmacist consulted by Dr Abdul on 04/10/18 for glycemic control and to write orders per [facility] inpatient glycemic control protocol Objective Weight (Kilograms): 87.700 Accuchecks BSG (last 24hrs): Test 04/09/18 15:04 04/09/18 16:01 04/09/18 17:24 04/09/18 18:17 Bedside Glucose 494 mg/dl (70-90) 483 mg/dl (70-90) 523 mg/dl (70-90) Random Glucose 512 mg/dl (70-99) Test 04/09/18 19:18 04/09/18 20:20 04/09/18 20:59 04/09/18 21:31 Bedside Glucose 573 mg/dl (70-90) 511 mg/dl (70-90) 382 mg/dl (70-90) Random Glucose 412 mg/dl (70-99) Test 04/09/18 22:36 04/10/18 00:08 04/10/18 00:58 04/10/18 01:58 Bedside Glucose 337 mg/dl (70-90) 309 mg/dl (70-90) 300 mg/dl (70-90) 266 mg/dl (70-90) Test 04/10/18 02:56 04/10/18 04:13 04/10/18 04:23 04/10/18 05:21 Bedside Glucose 285 mg/dl (70-90) 243 mg/dl (70-90) 202 mg/dl (70-90) Random Glucose 244 mg/dl (70-99) Test 04/10/18 06:17 04/10/18 07:44 04/10/18 07:58 04/10/18 09:56 Bedside Glucose 215 mg/dl (70-90) 164 mg/dl (70-90) 168 mg/dl (70-90) Random Glucose 180 mg/dl (70-99) Laboratory Data (last 24hrs) Test 04/09/18 16:01 04/09/18 20:59 04/10/18 04:23 04/10/18 07:44 Anion Gap 19.0 mmol/L 16.0 mmol/L 10.0 mmol/L 10.0 mmol/L BUN/Creatinine Ratio 17.5 22.4 22.5 23.0 Blood Urea Nitrogen 21 mg/dl 24 mg/dl 23 mg/dl 21 mg/dl Creatinine 1.22 mg/dl 1.07 mg/dl 1.03 mg/dl 0.93 mg/dl Potassium Level 4.7 mmol/L 4.9 mmol/L 4.3 mmol/L 4.4 mmol/L Sodium Level 135 mmol/L 140 mmol/L 140 mmol/L 141 mmol/L White Blood Count 23.52 K/uL Red Blood Count 4.95 M/uL Hemoglobin 14.6 g/dL Hematocrit 42.5 % Mean Corpuscular Volume 85.9 fL Mean Corpuscular Hemoglobin 29.5 pg Mean Corpuscular Hemoglobin Concent 34.4 g/dl Platelet Count 344 K/uL Mean Platelet Volume 10.9 fL Neutrophils (%) (Auto) 92.1 % Lymphocytes (%) (Auto) 4.2 % Monocytes (%) (Auto) 3.4 % Eosinophils (%) (Auto) 0.0 % Basophils (%) (Auto) 0.0 % Neutrophils # (Auto) 21.65 K/uL Lymphocytes # (Auto) 0.99 K/uL Monocytes # (Auto) 0.80 K/uL Eosinophils # (Auto) 0.01 K/uL Basophils # (Auto) 0.01 K/uL Recent Pertinent Medications Outpatient Anti-diabetic Regimen: * Novolog Insulin pump * TDD = 45 units insulin * Basal 36 units/day * Patient only checks blood sugar 1-2 times a day, and does not like to bolus, only boluses 3-5 units/day * A1c = 9.8 % 11/18/17, new A1c on order The patient is currently receiving: * IV insulin infusion per moderate stress protocol * Goal Range 150 - 200 mg/dl Risk Factors for Insulin Resistance: * Diet: Type 2 DM/ Clears Assessment & Plan ASSESSMENT: * 33 year old type 1 diabetic admitted for DKA, started on insulin drip, currently running at 3.4units/hr, DKA now resolved * Type 1 DM diagnosed at 11 years old, uncontrolled, latest A1c 9.8%, managed by Dr Fabian's office, next appt on 05/05 @ 2pm. * Patient met with CDE today, Masha. * Patient has turned off alerts on insulin pump and is resistant to giving herself bolus doses. * Patient has all of her supplies to restart her insulin pump while inpatient * Discussed with RN, Sarah, regarding patient's competency and using insulin pump therapy patient agreement. PLAN FOR INPATIENT GLYCEMIC CONTROL: * Continue IV insulin infusion, overlapping x 3 hours with insulin pump * Restart Novolog insulin pump with home settings at this time * Follow-up with Dr Fabian's office as scheduled on 05/05, recommend better bolus dosing and SMBG and turning on alerts on pump for patient safety * Please note that the plan above was derived based on current level of insulin resistance and hospital stress. These recommendations are appropriate for inpatient admission only. Plan of care upon discharge will need to be reassessed to avoid potential outpatient hypo/hyperglycemia. Thank you.
[2018-04-10 15:16] VITALS: BP 107/66; PULSE 92; TEMP 37.1; O2SAT 99
[2018-04-10 16:37] VITALS: BP 107/66; PULSE 92; TEMP 37.1; O2SAT 99
--- NOTE | 2018-04-10 17:25 | Discharge Summary ---
Discharge Summary Date of Service Apr 10, 2018. Discharge Summary Admission Date: Apr 09, 2018 at 21:28 Discharge Date: Apr 10, 2018 Discharge Disposition: Home Principal Diagnosis: Diabetic Ketoacidosis Problems/Secondary Diagnoses: 1) Diabetes Mellitus Type 1 2) Hypothyroidism 3) Hypertension Immunizations: Have You Had Influenza Vaccine: No History of Tetanus Vaccine?: No History of Pneumococcal: No History of Hepatitis B Vaccine: No Procedures: CXR IMPRESSION: 1. No acute cardiopulmonary disease. Medication Reconciliation Continued Medications: Albuterol Hfa (Ventolin Hfa) 200 Puffs/34425 Mcg Aers 2 PUFFS INH Q4H, #1 INHALER Bupropion Hcl (Wellbutrin Xl) 150 Mg Tab 1 TAB PO QAM Buspirone Hcl (Buspirone Hcl) 30 Mg Tab 1 TAB PO BID Cholecalciferol (Vitamin D3) 1,000 Unit Tab 1 TAB PO DAILY for 90 Days, #90 TAB 3 Refills Insulin Human Lispro (Insulin Humalog Pump ) Pump 1 EA N/A UD, 0 Refills Irbesartan (Avapro) 75 Mg Tab 75 MG PO QAM Levothyroxine Sodium (Levothyroxine Sodium) 125 Mcg Tab 125 MCG PO QAM Venlafaxine Hcl (Effexor) 75 Mg Tab 225 MG PO HS, TAB Discharge Exam Ms. Murillo reports she feels much better today. She denies any further episodes of nausea or vomiting and states she is hungry. She denies abdominal pain, fever , chills. She states she has otherwise been well recently. She states she has not been admitted to the hospital for DKA since she got her insulin pump and is unsure how her sugar levels got so high. Review of Systems: Constitutional: No fever, No chills Respiratory: No cough, No shortness of breath Cardiovascular: No chest pain Abdomen: No pain, No nausea, No vomiting, No diarrhea Physical Exam: General Appearance: WD/WN, no apparent distress Respiratory/Chest: lungs clear, normal breath sounds, no respiratory distress, no accessory muscle use Cardiovascular: regular rate, rhythm, no edema, no gallop, no murmur Abdomen / GI: non tender, soft Neurologic/Psychiatric: alert, normal mood/affect, oriented x 3 Hospital Course Ms. Murillo is a 33 year old female with a past medical history of hypertension and Type 1 Diabetes on an insulin pump that woke up at 4am this morning with nausea and vomiting DKA - pt has insulin pump - glucose on admission was 494 w/anion gap of 19 - creatinine bumped to 1.22 and resolved prior to d/c - treated with IV fluids, potassium supplementation and IV insulin drip - no trigger identified by patient, on further discussion w/patient, she seemed to be using the basal insulin, but not the bolus - pump evaluated by pharmacy - working well w/out problems - f/u appointment made for patient with endocrinology Resident Physician Supervision Note: I interviewed and examined the patient. Discussed with Dr. Abdul and agree with findings and plan as documented in the note. Any exceptions or clarifications are listed here: None Documented By: Tommy Glover feeling better eating well would like to go home vitals noted nad breathing unlabored no pallor or icterus DKA - resolved. stable for home, close PCP/endocrine follow up Total Time Spent: Less than 30 minutes This includes examination of the patient, discharge planning, medication reconciliation, and communication with other providers. Discharge Instructions Please refer to the electronic Patient Visit Report (Discharge Instructions) for additional information. Additional Copies To Wilber Hinds M.D.; Aamir Fabian M.D. Resident Tracking Resident Involvement: Resident Care Provided Care Provided: Adult [facility]
[2018-04-10] MEDS ORDERED: INSULIN REGULAR 250 UNITS in SODIUM CHLORIDE 0.9% 250ML 250 ML IV SCH (17:45)
[2018-04-11 06:20] LABS: HEMOGLOBIN A1C 10.1 % (4.5-5.6)
== END 2018-04-10 17:17 | disposition home or self-care (01) | DRG 639 ==
LOC: C.EDB 13:51 → C.2T 21:28 → ENRESERV 22:26
PROVIDERS: ADMIT Student in an Organized Health Care Education/Training Program; ATTEND Family Medicine
DX: E10.10 Type 1 diabetes mellitus with ketoacidosis without coma (principal); Z96.41 Presence of insulin pump (external) (internal); Z79.4 Long term (current) use of insulin; E03.9 Hypothyroidism, unspecified; I10 Essential (primary) hypertension